=== PATIENT | female | born 1965 | race Caucasian/White ===

== ENCOUNTER 2024-12-27 10:32 | Emergency (ER) | payer MEDICAID ==
[~2024-12-27] VITALS: Ht 162.6 cm; Wt 75.7 kg
[2024-12-27 10:48] VITALS: BP 160/93; TEMP 98.4
[2024-12-27] MEDS ORDERED: NAPR-1009 PO (12:32)
[2024-12-27] MEDS ORDERED: LIDO30AD10 TP (12:32)
[2024-12-27] MEDS ORDERED: ACET-73 PO (12:32)
[2024-12-27 12:35] VITALS: O2SAT 98
== END 2024-12-27 12:39 | disposition home or self-care (01) ==
LOC: ER 10:46
DX: S20.211A Contusion of right front wall of thorax, initial encounter (principal); W19.XXXA Unspecified fall, initial encounter; Y93.89 Activity, other specified; Y92.89 Other specified places as the place of occurrence of the external cause; Y99.8 Other external cause status
CPT/HCPCS: 71100-TC